=== PATIENT | male | born 1970 | race Two or more races ===

== ENCOUNTER 2020-08-05 06:33 | Outpatient (CLI) | payer OTHER | END 2020-08-05 07:01 | disposition home or self-care (01) | LOC: NUCLEAR 06:33 | PROVIDERS: ATTEND Internal Medicine Sports Medicine | DX: I25.10 Atherosclerotic heart disease of native coronary artery without angina pectoris (principal) | CPT/HCPCS: A9500; 78452; 93017 ==

== ENCOUNTER 2022-01-10 17:46 | Emergency (ER) | payer OTHER ==
[~2022-01-10] VITALS: Ht 182.9 cm; Wt 113.4 kg
[2022-01-10] MEDS ORDERED: CRESTOR10 MG (18:06)
== END 2022-01-10 22:28 | disposition home or self-care (01) ==
LOC: ER 17:46
DX: I10 Essential (primary) hypertension (principal)